=== PATIENT | female | born 1945 | race Caucasian/White ===

== ENCOUNTER 2019-01-22 10:09 | Emergency (ER) | payer OTHER, MEDICAID ==
[~2019-01-22] VITALS: Ht 165.1 cm; Wt 70.0 kg
[2019-01-22 11:30] LABS: BASOPHILS % 1.3 % (0.0-2.0); EOSINOPHILS % 1.4 % (0.0-5.0); HEMATOCRIT. 38.7 % (36.0-48.0); HEMOGLOBIN. 12.7 g/dL (12.0-16.0); LYMPHOCYTES % 31.5 % (20.0-50.0); MEAN CORPUSCULAR HEMOGLOBIN 29.9 pg (28.0-32.0); MEAN CORPUSCULAR VOLUME 90.7 fL (81.0-99.0); MEAN PLATELET VOLUME 7.8 fl (7.4-10.4); NEUTROPHILS % 59.8 % (40.0-76.0); PLATELET 180 x1000/uL (130-400); RED BLOOD CELL COUNT 4.26 mill/uL (4.2-5.4); RED CELL DISTRIBUTION WIDTH 14.2 % (11.6-14.6)
[2019-01-22 11:36] LABS: CHLORIDE 107 mEq/L (98-107)
[2019-01-22 11:38] LABS: INR 1.1; PROTHROMBIN TIME 11.7 sec (9.6-11.0)
[2019-01-22 13:38] VITALS: BP 122/85
== END 2019-01-22 13:39 | disposition home or self-care (01) ==
LOC: ER 11:02
DX: S00.03XA Contusion of scalp, initial encounter (principal); S00.83XA Contusion of other part of head, initial encounter; E11.9 Type 2 diabetes mellitus without complications; I10 Essential (primary) hypertension; G30.9 Alzheimer's disease, unspecified; F02.80 Dementia in other diseases classified elsewhere, unspecified severity, without behavioral disturbance, psychotic disturbance, mood disturbance, and anxiety; W06.XXXA Fall from bed, initial encounter; Y93.89 Activity, other specified; Y92.89 Other specified places as the place of occurrence of the external cause; Y99.8 Other external cause status
CPT/HCPCS: 36415; 84484; 93005; 99284

== ENCOUNTER 2019-09-28 22:06 | Inpatient (IN) | payer OTHER, MEDICAID ==
[~2019-09-28] VITALS: Ht 152.4 cm; Wt 48.5 kg
[2019-09-29] MEDS ORDERED: ONDANSETRON HCL 4MG/2ML INJ IV ONE (01:00)
[2019-09-29] MEDS ORDERED: MORPHINE SULFATE 2 MG/ML CPJ (NOT FOR IM USE) IV ONE (01:00)
[2019-09-29 01:26] LABS: HEMATOCRIT 35.6 % (36.0-48.0); HEMOGLOBIN 12.1 g/dL (12.0-16.0); MEAN CORPUSCULAR HEMOGLOBIN 30.3 pg (28.0-32.0); PLATELET 175 x1000/uL (130-400); RED CELL DISTRIBUTION WIDTH 13.8 % (11.6-14.6)
[2019-09-29 01:29] LABS: CHLORIDE 105 mEq/L (98-107)
[2019-09-29] MEDS ORDERED: DOCUSATE SODIUM 100MG CAPSULE PO PRN (10:15)
[2019-09-29] MEDS ORDERED: IPRATROPIUM/ALBUTEROL 0.5-3(2.5)MG/3ML NEB HHN PRN (10:15)
[2019-09-29] MEDS ORDERED: HYDROCODONE/ACETAMINOPHEN 5/325MG TABLET PO PRN (10:15)
[2019-09-29] MEDS ORDERED: ONDANSETRON HCL 4MG/2ML INJ IV PRN (10:15)
[2019-09-29] MEDS ORDERED: CLONIDINE 0.1MG TABLET PO PRN (10:15)
[2019-09-29] MEDS: LACTATED RINGERS 1,000 ML IV SCH (10:25)
[2019-09-29] MEDS: MORPHINE SULFATE 2 MG/ML CPJ (NOT FOR IM USE) IV PRN (10:25)
[2019-09-29] MEDS: ACETAMINOPHEN 325MG TABLET PO PRN (10:26)
[2019-09-29 12:30] LABS: INR 1.1; PROTHROMBIN TIME 11.9 sec (9.6-11.0)
[2019-09-29 15:51] LABS: CLARITY URINE CLEAR (CLEAR); COLOR URINE YELLOW (YELLOW); KETONES URINE NEGATIVE (NEGATIVE); LEUKOCYTE ESTERASE URINE NEGATIVE (NEGATIVE); NITRITE URINE NEGATIVE (NEGATIVE); OCCULT BLOOD URINE NEGATIVE (NEGATIVE); PROTEIN URINE NEGATIVE (NEGATIVE); SPECIFIC GRAVITY URINE 1.018 (1.005-1.030)
[2019-09-29 17:42] VITALS: BP 120/76
[2019-09-29] MEDS ORDERED: GABA-529 MT (18:07)
[2019-09-29] MEDS ORDERED: CARB-32 MT (18:09)
[2019-09-29] MEDS ORDERED: GLIM2TAB30 MT (18:10)
[2019-09-29 20:00] VITALS: BP 109/63
[2019-09-30] VITALS: BP 115/67
[2019-09-30] MEDS: LACTATED RINGERS 1,000 ML IV SCH ×2 (00:26→16:15)
[2019-09-30 04:00] VITALS: BP 130/72
[2019-09-30 08:00] VITALS: BP 152/90
[2019-09-30] MEDS: ACETAMINOPHEN 325MG TABLET PO PRN (10:54)
[2019-09-30] MEDS: MORPHINE SULFATE 2 MG/ML CPJ (NOT FOR IM USE) IV PRN ×2 (10:55→16:14)
[2019-09-30 15:59] LABS: BASOPHILS % 1.1 % (0.0-2.0); EOSINOPHILS % 1.2 % (0.0-5.0); HEMATOCRIT. 34.8 % (36.0-48.0); LYMPHOCYTES % 15.8 % (20.0-50.0); MEAN CORPUSCULAR HEMOGLOBIN 30.1 pg (28.0-32.0); MEAN CORPUSCULAR VOLUME 87.7 fL (81.0-99.0); MEAN PLATELET VOLUME 7.7 fl (7.4-10.4); MONOCYTES % 8.3 % (2.0-8.0); NEUTROPHILS % 73.6 % (40.0-76.0); PLATELET 202 x1000/uL (130-400); RED BLOOD CELL COUNT 3.97 mill/uL (4.2-5.4); RED CELL DISTRIBUTION WIDTH 13.4 % (11.6-14.6)
[2019-09-30 16:04] LABS: CHLORIDE 104 mEq/L (98-107)
[2019-09-30 20:00] VITALS: BP 144/78
[2019-10-01] VITALS: BP 149/83
[2019-10-01] MEDS: LACTATED RINGERS 1,000 ML IV SCH ×2 (02:51→17:39)
[2019-10-01 04:00] VITALS: BP 146/68
[2019-10-01 07:01] LABS: CHLORIDE 103 mEq/L (98-107)
[2019-10-01 07:05] LABS: EOSINOPHILS % 0.9 % (0.0-5.0); HEMATOCRIT. 34.7 % (36.0-48.0); HEMOGLOBIN. 11.9 g/dL (12.0-16.0); LYMPHOCYTES % 10.8 % (20.0-50.0); MEAN CORPUSCULAR HEMOGLOBIN 30.4 pg (28.0-32.0); MEAN CORPUSCULAR VOLUME 89.2 fL (81.0-99.0); MEAN PLATELET VOLUME 7.5 fl (7.4-10.4); MONOCYTES % 6.8 % (2.0-8.0); NEUTROPHILS % 80.5 % (40.0-76.0); PLATELET 205 x1000/uL (130-400); RED BLOOD CELL COUNT 3.89 mill/uL (4.2-5.4); RED CELL DISTRIBUTION WIDTH 13.3 % (11.6-14.6)
[2019-10-01 08:00] VITALS: BP 152/80
[2019-10-01] MEDS ORDERED: KETOROLAC 30MG/ML VIAL ONE (09:20)
[2019-10-01] MEDS ORDERED: MORPHINE SULFATE 10 MG/ML CPJ ONE (09:20)
[2019-10-01] MEDS ORDERED: ROPIVACAINE HCL 10MG/ML 20 ML VIAL EPI ONE ×2 (09:21→10:26)
[2019-10-01] MEDS ORDERED: EPINEPHRINE 1:1000 1 MG/ML AMP ONE (09:22)
[2019-10-01] MEDS ORDERED: BUPIVACAINE HCL/PF 0.25% (2.5MG/ML) 10ML ONE (09:27)
[2019-10-01] MEDS ORDERED: VANCOMYCIN HCL 1 GM/VIAL ONE (09:28)
[2019-10-01] MEDS ORDERED: BACITRACIN 50,000 UNITS/VIAL ONE (09:28)
[2019-10-01] MEDS ORDERED: TRANEXAMIC ACID 1,000 MG in SODIUM CHLORIDE 0.9% 100 ML IV NR ×2 (09:30→10:00)
[2019-10-01] MEDS ORDERED: PROPOFOL 200MG/20ML VIAL IV ONE (09:31)
[2019-10-01] MEDS ORDERED: FENTANYL CITRATE/PF 50MCG/ML 2ML VIAL ONE (09:31)
[2019-10-01] MEDS ORDERED: MORPHINE SULFATE/PF 1MG/ML 10ML AMP ONE (09:39)
[2019-10-01] MEDS ORDERED: HYDROCODONE/ACETAMINOPHEN 5/325MG TABLET PO PRN (11:30)
[2019-10-01] MEDS ORDERED: ACETAMINOPHEN 325MG TABLET PO PRN (11:30)
[2019-10-01] MEDS ORDERED: KETOROLAC 30MG/ML VIAL IV PRN (11:30)
[2019-10-01] MEDS ORDERED: ONDANSETRON HCL 4MG/2ML INJ IV PRN (11:30)
[2019-10-01] MEDS ORDERED: CEFAZOLIN 1000MG PREMIX 50 ML IV SCH (11:30)
[2019-10-01] MEDS ORDERED: MORPHINE SULFATE 2 MG/ML CPJ (NOT FOR IM USE) IV PRN (11:45)
[2019-10-01] MEDS ORDERED: FENTANYL CITRATE/PF 50MCG/ML 2ML VIAL IV PRN (11:45)
[2019-10-01] MEDS ORDERED: LACTATED RINGERS 1,000 ML IV SCH (12:30)
[2019-10-01 16:00] VITALS: BP 125/71
[2019-10-01] MEDS: CEFAZOLIN 1000MG PREMIX 50 ML IV SCH (17:28)
[2019-10-01] MEDS: SENNOSIDES/DOCUSATE SOD 8.6/50MG TABLET PO SCH (17:29)
[2019-10-01 20:00] VITALS: BP 126/69
[2019-10-02] VITALS: BP 139/76
[2019-10-02] MEDS: CEFAZOLIN 1000MG PREMIX 50 ML IV SCH ×2 (01:45→16:30)
[2019-10-02 04:00] VITALS: BP 128/72
[2019-10-02 06:57] LABS: HEMOGLOBIN. 11.2 g/dL (12.0-16.0); MEAN CORPUSCULAR VOLUME 88.4 fL (81.0-99.0); MEAN PLATELET VOLUME 7.5 fl (7.4-10.4); PLATELET 218 x1000/uL (130-400); RED BLOOD CELL COUNT 3.73 mill/uL (4.2-5.4); RED CELL DISTRIBUTION WIDTH 13.5 % (11.6-14.6)
[2019-10-02 07:14] LABS: CHLORIDE 103 mEq/L (98-107)
[2019-10-02 08:00] VITALS: BP 123/65
[2019-10-02] MEDS: SENNOSIDES/DOCUSATE SOD 8.6/50MG TABLET PO SCH ×2 (09:00→17:00)
[2019-10-02] MEDS: MORPHINE SULFATE 2 MG/ML CPJ (NOT FOR IM USE) IV PRN (09:10)
[2019-10-02] MEDS: LACTATED RINGERS 1,000 ML IV SCH ×2 (09:11→22:14)
[2019-10-02 12:00] VITALS: BP 122/63
[2019-10-02 13:28] LABS: PLATELET ESTIMATE NORMAL
[2019-10-02 16:00] VITALS: BP 106/58
[2019-10-02 20:00] VITALS: BP 93/43
[2019-10-03] VITALS: BP 102/80
[2019-10-03] MEDS ORDERED: POTASSIUM CHLORIDE 20MEQ TABLET SR PO NR
[2019-10-03] MEDS: CEFAZOLIN 1000MG PREMIX 50 ML IV SCH ×3 (01:49→22:10)
[2019-10-03 04:00] VITALS: BP 95/60
[2019-10-03 06:07] LABS: BASOPHILS % 0.6 % (0.0-2.0); EOSINOPHILS % 1.2 % (0.0-5.0); HEMATOCRIT. 28.6 % (36.0-48.0); HEMOGLOBIN. 9.8 g/dL (12.0-16.0); MEAN CORPUSCULAR HEMOGLOBIN 30.4 pg (28.0-32.0); MEAN CORPUSCULAR VOLUME 88.4 fL (81.0-99.0); MEAN PLATELET VOLUME 7.7 fl (7.4-10.4); MONOCYTES % 7.9 % (2.0-8.0); NEUTROPHILS % 82.3 % (40.0-76.0); PLATELET 207 x1000/uL (130-400); RED BLOOD CELL COUNT 3.23 mill/uL (4.2-5.4); RED CELL DISTRIBUTION WIDTH 13.5 % (11.6-14.6)
[2019-10-03 06:11] LABS: CHLORIDE 106 mEq/L (98-107)
[2019-10-03 08:00] VITALS: BP 93/40
[2019-10-03] MEDS: SENNOSIDES/DOCUSATE SOD 8.6/50MG TABLET PO SCH ×2 (09:00→17:00)
[2019-10-03] MEDS: LACTATED RINGERS 1,000 ML IV SCH (11:35)
[2019-10-03 12:00] VITALS: BP 114/47
[2019-10-03 16:00] VITALS: BP 115/50
[2019-10-03 20:00] VITALS: BP 101/60
[2019-10-03] MEDS ORDERED: POTASSIUM CHLORIDE INJ 40 MEQ in DEXT 5% WATER 500 ML IV SCH (21:30)
[2019-10-04] VITALS (10 sets, daily range): BP systolic 79–113; BP diastolic 44–62
[2019-10-04] MEDS: MORPHINE SULFATE 2 MG/ML CPJ (NOT FOR IM USE) IV PRN (04:44)
[2019-10-04 06:30] LABS: BASOPHILS % 0.7 % (0.0-2.0); EOSINOPHILS % 1.9 % (0.0-5.0); HEMATOCRIT. 30.6 % (36.0-48.0); HEMOGLOBIN. 10.4 g/dL (12.0-16.0); LYMPHOCYTES % 15.3 % (20.0-50.0); MEAN CORPUSCULAR HEMOGLOBIN 29.8 pg (28.0-32.0); MEAN CORPUSCULAR VOLUME 87.7 fL (81.0-99.0); MONOCYTES % 6.7 % (2.0-8.0); NEUTROPHILS % 75.4 % (40.0-76.0); PLATELET 274 x1000/uL (130-400); RED BLOOD CELL COUNT 3.49 mill/uL (4.2-5.4); RED CELL DISTRIBUTION WIDTH 13.6 % (11.6-14.6)
[2019-10-04 06:36] LABS: CHLORIDE 107 mEq/L (98-107)
[2019-10-04] MEDS: LACTATED RINGERS 1,000 ML IV SCH ×2 (06:51→23:16)
[2019-10-04] MEDS: CEFAZOLIN 1000MG PREMIX 50 ML IV SCH ×2 (08:44→21:57)
[2019-10-04] MEDS: SENNOSIDES/DOCUSATE SOD 8.6/50MG TABLET PO SCH ×2 (08:44→17:49)
[2019-10-04] MEDS: CARBIDOPA/LEVODOPA 25/100MG TABLET PO SCH ×2 (15:23→21:57)
[2019-10-04] MEDS: GABAPENTIN 100MG CAPSULE PO SCH ×2 (15:24→21:57)
[2019-10-04] MEDS ORDERED: MORPHINE SULFATE 2 MG/ML CPJ (NOT FOR IM USE) IV PRN (15:30)
[2019-10-04] MEDS ORDERED: NALOXONE HCL 0.4 MG/ML 1ML VIAL IV SCH (16:30)
[2019-10-04] MEDS ORDERED: NALOXONE HCL 0.4 MG/ML 1ML VIAL ONE (16:32)
[2019-10-04] MEDS ORDERED: SODIUM CHLORIDE 0.9% 500 ML IV ONE ×2 (16:45→17:00)
[2019-10-04] MEDS ORDERED: SODIUM CHLORIDE 0.9% 1000ML BAG (SEPSIS BOLUS) IV ONE (17:30)
[2019-10-04] MEDS ORDERED: SODIUM CHLORIDE 0.9% 1,000 ML IV SCH ×2 (17:30→18:30)
[2019-10-04] MEDS: MIDODRINE HCL 5MG TABLET PO SCH (17:49)
[2019-10-04] MEDS ORDERED: NALOXONE HCL 0.4 MG/ML 1ML VIAL IV ONE (18:30)
[2019-10-04] MEDS ORDERED: SODIUM CHLORIDE 0.9% 2,000 ML IV ONE (19:00)
[2019-10-05] VITALS (28 sets, daily range): BP systolic 86–156; BP diastolic 49–73
[2019-10-05] MEDS: CARBIDOPA/LEVODOPA 25/100MG TABLET PO SCH ×3 (06:05→21:36)
[2019-10-05] MEDS: GABAPENTIN 100MG CAPSULE PO SCH ×3 (06:05→21:36)
[2019-10-05] MEDS ORDERED: NOREPINEPHRINE 4 MG in DEXT 5% WATER 246 ML IV PRN (08:15)
[2019-10-05] MEDS: MIDODRINE HCL 5MG TABLET PO SCH ×3 (08:20→16:37)
[2019-10-05] MEDS: SENNOSIDES/DOCUSATE SOD 8.6/50MG TABLET PO SCH ×2 (08:20→16:37)
[2019-10-05 09:02] LABS: CHLORIDE 112 mEq/L (98-107)
[2019-10-05] MEDS: CEFAZOLIN 1000MG PREMIX 50 ML IV SCH ×2 (09:13→21:35)
[2019-10-05] MEDS: LACTATED RINGERS 1,000 ML IV SCH ×2 (12:24→23:53)
[2019-10-05] MEDS: ENOXAPARIN 30MG/0.3ML SYR SUBCUT SCH (12:25)
[2019-10-05] MEDS ORDERED: KCL 20MEQ/100ML PREMIX 100 ML IV NR (13:00)
[2019-10-06] VITALS (11 sets, daily range): BP systolic 91–140; BP diastolic 52–93
[2019-10-06] MEDS: GABAPENTIN 100MG CAPSULE PO SCH ×2 (05:48→13:10)
[2019-10-06] MEDS: CARBIDOPA/LEVODOPA 25/100MG TABLET PO SCH ×2 (05:48→13:10)
[2019-10-06 07:13] LABS: BASOPHILS % 1.3 % (0.0-2.0); EOSINOPHILS % 4.9 % (0.0-5.0); HEMATOCRIT. 28.4 % (36.0-48.0); HEMOGLOBIN. 9.6 g/dL (12.0-16.0); LYMPHOCYTES % 20.9 % (20.0-50.0); MEAN CORPUSCULAR HEMOGLOBIN 30.1 pg (28.0-32.0); MEAN CORPUSCULAR VOLUME 88.9 fL (81.0-99.0); MEAN PLATELET VOLUME 7.2 fl (7.4-10.4); MONOCYTES % 6.8 % (2.0-8.0); NEUTROPHILS % 66.1 % (40.0-76.0); PLATELET 309 x1000/uL (130-400); RED BLOOD CELL COUNT 3.19 mill/uL (4.2-5.4); RED CELL DISTRIBUTION WIDTH 13.9 % (11.6-14.6)
[2019-10-06 07:23] LABS: CHLORIDE 110 mEq/L (98-107)
[2019-10-06] MEDS: SENNOSIDES/DOCUSATE SOD 8.6/50MG TABLET PO SCH (08:56)
[2019-10-06] MEDS: MIDODRINE HCL 5MG TABLET PO SCH ×2 (08:56→13:10)
[2019-10-06] MEDS: CEFAZOLIN 1000MG PREMIX 50 ML IV SCH (10:43)
[2019-10-06] MEDS: LACTATED RINGERS 1,000 ML IV SCH (10:49)
[2019-10-06] MEDS ORDERED: ACET650T37 MT (13:00)
[2019-10-06] MEDS ORDERED: LOV40 SQ (13:00)
[2019-10-06] MEDS ORDERED: HYDR-4001 MT ×2 (13:00→15:29)
[2019-10-06] MEDS: ENOXAPARIN 30MG/0.3ML SYR SUBCUT SCH (13:00)
[2019-10-06] MEDS ORDERED: ATOR10TA69 MT (13:00)
[2019-10-06] MEDS ORDERED: HYDROCODONE/ACETAMINOPHEN 5/325MG TABLET PO NR (16:30)
== END 2019-10-06 19:01 | disposition home health service (06) | DRG 470 ==
LOC: ER 22:06 → MICUSO 09-29 01:28 → 6EST 09-29 17:29 → 5EST 10-04 18:34
PROVIDERS: ADMIT Internal Medicine; ATTEND Internal Medicine
PROC: 0SRS01A Replacement of Left Hip Joint, Femoral Surface with Metal Synthetic Substitute, Uncemented, Open Approach (ICD-10-PCS; principal; 2019-10-01)
DX: S72.012A Unspecified intracapsular fracture of left femur, initial encounter for closed fracture (principal); E11.9 Type 2 diabetes mellitus without complications; G20 Parkinson's disease; F02.80 Dementia in other diseases classified elsewhere, unspecified severity, without behavioral disturbance, psychotic disturbance, mood disturbance, and anxiety; Z20.828 Contact with and (suspected) exposure to other viral communicable diseases; I10 Essential (primary) hypertension; W01.0XXA Fall on same level from slipping, tripping and stumbling without subsequent striking against object, initial encounter; I95.9 Hypotension, unspecified; Y93.89 Activity, other specified; Y92.89 Other specified places as the place of occurrence of the external cause; Z90.710 Acquired absence of both cervix and uterus; Z79.84 Long term (current) use of oral hypoglycemic drugs; Y99.8 Other external cause status
CPT/HCPCS: 36415; 71045; 72170; 72192; 73502; 73552; 78582; 80048; 80053; 80061; 80076; 81003; 82550; 83036; 83605; 83880; 84484; 85025; 85027; 85379; 86850; 86900; 88305; 88311; 93005; 93306; 93970; 96374; 97110; 97163; 97166; 97530; 99285; A9558; J0690; J1650; J1885; J2270; J2274; J2310; J2405; J2704; J2795; J3010; J3370; J3480; J3490; J7050; J7060; J7120; U0003-CS

== ENCOUNTER 2019-10-26 16:38 | Inpatient (IN) | payer OTHER, MEDICAID ==
[~2019-10-26] VITALS: Ht 152.4 cm; Wt 44.5 kg
[~2019-10-26 16:38] MED LIST: ACET650T37 MT; ATOR10TA69 MT; CARB-32 MT; GABA-529 MT; GLIM2TAB30 MT; HYDR-4001 MT; LOV40 SQ
[2019-10-26] MEDS ORDERED: SODIUM CHLORIDE 0.9% 1,000 ML IV ONE (17:54)
[2019-10-26] MEDS ORDERED: KETOROLAC 30MG/ML VIAL IV STA (17:54)
[2019-10-26 18:09] LABS: BASOPHILS % 0.8 % (0.0-2.0); EOSINOPHILS % 1.6 % (0.0-5.0); HEMATOCRIT. 33.8 % (36.0-48.0); HEMOGLOBIN. 11.2 g/dL (12.0-16.0); LYMPHOCYTES % 18.5 % (20.0-50.0); MEAN CORPUSCULAR HEMOGLOBIN 29.9 pg (28.0-32.0); MEAN CORPUSCULAR VOLUME 90.5 fL (81.0-99.0); MEAN PLATELET VOLUME 7.9 fl (7.4-10.4); MONOCYTES % 5.9 % (2.0-8.0); NEUTROPHILS % 73.2 % (40.0-76.0); PLATELET 213 x1000/uL (130-400); RED BLOOD CELL COUNT 3.74 mill/uL (4.2-5.4); RED CELL DISTRIBUTION WIDTH 14.8 % (11.6-14.6)
[2019-10-26 18:17] LABS: CHLORIDE 103 mEq/L (98-107)
[2019-10-26 18:20] LABS: INR 1.1
[2019-10-26] MEDS ORDERED: MORPHINE SULFATE 4 MG/ML CPJ (NOT FOR IM USE) IV STA (19:56)
[2019-10-26] MEDS ORDERED: ONDANSETRON HCL 4MG/2ML INJ IV STA (19:56)
[2019-10-26] MEDS ORDERED: KETOROLAC 30MG/ML VIAL IV PRN (22:15)
[2019-10-26] MEDS ORDERED: MAGNESIUM/ALUMINUM HYDROXIDE/SIMETHICONE 30ML UDC PO PRN (22:15)
[2019-10-26] MEDS ORDERED: DIPHENHYDRAMINE 50MG/ML VIAL IV PRN (22:15)
[2019-10-26] MEDS ORDERED: HYDROCODONE/ACETAMINOPHEN 10/325MG TABLET PO PRN (22:15)
[2019-10-26] MEDS ORDERED: DEXTROSE 50% WATER 50ML SYRINGE IV PRN (22:15)
[2019-10-26] MEDS ORDERED: ONDANSETRON HCL 4MG/2ML INJ IV PRN (22:15)
[2019-10-26] MEDS ORDERED: ZOLPIDEM TARTRATE 5MG TABLET PO PRN (22:15)
[2019-10-26] MEDS ORDERED: MAGNESIUM HYDROXIDE 400MG/5ML 30ML UDC PO PRN ×2 (22:15)
[2019-10-26] MEDS ORDERED: ACETAMINOPHEN 325MG TABLET PO PRN ×2 (22:15)
[2019-10-26] MEDS ORDERED: CLONIDINE 0.1MG TABLET PO PRN (22:15)
[2019-10-26 23:20] VITALS: BP 124/65
[2019-10-27] VITALS: BP 124/65
[2019-10-27 04:00] VITALS: BP 101/60
[2019-10-27] MEDS: SODIUM CHLORIDE 0.9% INJ 3ML FLUSH IVF SCH ×3 (06:00→20:30)
[2019-10-27] MEDS: BLOOD SUGAR DIAGNOSTIC STRIP TEST SCH ×4 (06:36→20:30)
[2019-10-27] MEDS: GABAPENTIN 100MG CAPSULE PO SCH ×3 (06:36→20:30)
[2019-10-27] MEDS: CARBIDOPA/LEVODOPA 25/100MG TABLET PO SCH ×3 (06:36→20:30)
[2019-10-27] MEDS: INSULIN LISPRO 100 UNITS/ML SUBCUT SCH ×4 (06:50→21:00)
[2019-10-27 08:00] VITALS: BP 82/51
[2019-10-27] MEDS: DOCUSATE SODIUM SUGAR FREE 100MG/10ML UDC PO SCH ×2 (08:58→17:21)
[2019-10-27] MEDS: ENOXAPARIN 30MG/0.3ML SYR SUBCUT SCH (08:58)
[2019-10-27] MEDS ORDERED: DOCUSATE SODIUM 100MG CAPSULE PO SCH (09:00)
[2019-10-27] MEDS: SODIUM CHLORIDE 0.9% 1,000 ML IV SCH ×2 (10:15→20:30)
[2019-10-27 12:00] VITALS: BP 119/60
[2019-10-27 16:00] VITALS: BP 98/56
[2019-10-27 20:00] VITALS: BP 131/68
[2019-10-28] VITALS (7 sets, daily range): BP systolic 102–138; BP diastolic 54–78
[2019-10-28] MEDS: BLOOD SUGAR DIAGNOSTIC STRIP TEST SCH ×4 (05:44→20:47)
[2019-10-28] MEDS: GABAPENTIN 100MG CAPSULE PO SCH ×3 (05:44→21:08)
[2019-10-28] MEDS: SODIUM CHLORIDE 0.9% INJ 3ML FLUSH IVF SCH ×3 (05:44→20:57)
[2019-10-28] MEDS: CARBIDOPA/LEVODOPA 25/100MG TABLET PO SCH ×3 (05:44→21:08)
[2019-10-28] MEDS: SODIUM CHLORIDE 0.9% 1,000 ML IV SCH ×2 (05:46→16:56)
[2019-10-28] MEDS: INSULIN LISPRO 100 UNITS/ML SUBCUT SCH ×4 (06:37→21:07)
[2019-10-28] MEDS: DOCUSATE SODIUM SUGAR FREE 100MG/10ML UDC PO SCH ×2 (09:24→17:10)
[2019-10-28] MEDS: ENOXAPARIN 30MG/0.3ML SYR SUBCUT SCH (09:24)
[2019-10-28] MEDS: CALCIUM CARBONATE/VITAMIN D3 500MG TABLET PO SCH (17:10)
[2019-10-29] MEDS: SODIUM CHLORIDE 0.9% 1,000 ML IV SCH (02:15)
[2019-10-29 04:00] VITALS: BP 116/62
[2019-10-29] MEDS: CARBIDOPA/LEVODOPA 25/100MG TABLET PO SCH ×3 (05:06→21:47)
[2019-10-29] MEDS: SODIUM CHLORIDE 0.9% INJ 3ML FLUSH IVF SCH ×3 (05:06→22:32)
[2019-10-29] MEDS: GABAPENTIN 100MG CAPSULE PO SCH ×3 (05:06→21:47)
[2019-10-29] MEDS: BLOOD SUGAR DIAGNOSTIC STRIP TEST SCH ×4 (07:18→21:00)
[2019-10-29] MEDS: INSULIN LISPRO 100 UNITS/ML SUBCUT SCH ×4 (07:18→21:00)
[2019-10-29 08:00] VITALS: BP 102/66
[2019-10-29] MEDS: DOCUSATE SODIUM SUGAR FREE 100MG/10ML UDC PO SCH ×3 (09:00→17:00)
[2019-10-29] MEDS: CALCITONIN,SALMON, 3.7 ML NASAL SPRAY ONENSTRL SCH (09:31)
[2019-10-29] MEDS: ENOXAPARIN 30MG/0.3ML SYR SUBCUT SCH (09:31)
[2019-10-29 12:00] VITALS: BP 106/68
[2019-10-29 16:00] VITALS: BP 95/56
[2019-10-29] MEDS: CALCIUM CARBONATE/VITAMIN D3 500MG TABLET PO SCH (18:00)
[2019-10-29 20:00] VITALS: BP 91/53
[2019-10-29] MEDS: QUETIAPINE FUMARATE 25MG TABLET PO SCH (21:47)
[2019-10-30] VITALS: BP 77/46
[2019-10-30] MEDS: MIDODRINE HCL 5MG TABLET PO SCH ×4 (00:06→17:22)
[2019-10-30 04:00] VITALS: BP 111/45
[2019-10-30] MEDS: CARBIDOPA/LEVODOPA 25/100MG TABLET PO SCH ×4 (05:44→21:11)
[2019-10-30] MEDS: GABAPENTIN 100MG CAPSULE PO SCH ×4 (05:45→21:11)
[2019-10-30] MEDS: SODIUM CHLORIDE 0.9% INJ 3ML FLUSH IVF SCH ×2 (06:59→14:05)
[2019-10-30] MEDS: BLOOD SUGAR DIAGNOSTIC STRIP TEST SCH ×4 (07:46→21:35)
[2019-10-30] MEDS: INSULIN LISPRO 100 UNITS/ML SUBCUT SCH ×4 (07:46→21:00)
[2019-10-30 08:00] VITALS: BP_SYST 135; BP_SYST 139; BP_DIAS 67; BP_DIAS 77
[2019-10-30] MEDS: ENOXAPARIN 30MG/0.3ML SYR SUBCUT SCH (09:08)
[2019-10-30] MEDS: QUETIAPINE FUMARATE 25MG TABLET PO SCH ×2 (09:08→21:11)
[2019-10-30] MEDS: DOCUSATE SODIUM SUGAR FREE 100MG/10ML UDC PO SCH ×2 (09:08→17:22)
[2019-10-30] MEDS: CALCITONIN,SALMON, 3.7 ML NASAL SPRAY ONENSTRL SCH (09:09)
[2019-10-30 12:00] VITALS: BP 139/77
[2019-10-30 16:00] VITALS: BP 120/71
[2019-10-30] MEDS: CALCIUM CARBONATE/VITAMIN D3 500MG TABLET PO SCH (17:22)
[2019-10-30 20:00] VITALS: BP 157/87
[2019-10-31] VITALS: BP 137/71
[2019-10-31] MEDS: SODIUM CHLORIDE 0.9% INJ 3ML FLUSH IVF SCH ×3 (01:21→14:16)
[2019-10-31 04:00] VITALS: BP 138/74
[2019-10-31] MEDS: CARBIDOPA/LEVODOPA 25/100MG TABLET PO SCH ×2 (06:00→14:13)
[2019-10-31] MEDS: GABAPENTIN 100MG CAPSULE PO SCH ×2 (06:00→14:13)
[2019-10-31] MEDS: BLOOD SUGAR DIAGNOSTIC STRIP TEST SCH ×2 (07:11→13:11)
[2019-10-31] MEDS: INSULIN LISPRO 100 UNITS/ML SUBCUT SCH ×2 (07:36→12:50)
[2019-10-31 08:00] VITALS: BP 132/79
[2019-10-31] MEDS: MIDODRINE HCL 5MG TABLET PO SCH ×2 (11:08→14:14)
[2019-10-31] MEDS: ENOXAPARIN 30MG/0.3ML SYR SUBCUT SCH (11:09)
[2019-10-31] MEDS: DOCUSATE SODIUM SUGAR FREE 100MG/10ML UDC PO SCH (11:09)
[2019-10-31] MEDS: QUETIAPINE FUMARATE 25MG TABLET PO SCH (11:09)
[2019-10-31] MEDS: CALCITONIN,SALMON, 3.7 ML NASAL SPRAY ONENSTRL SCH (11:10)
[2019-10-31 12:00] VITALS: BP 128/74
[2019-10-31 16:00] VITALS: BP 117/64
[2019-10-31 17:20] VITALS: BP 127/60
== END 2019-10-31 17:38 | disposition home or self-care (01) | DRG 551 ==
LOC: ER 16:38 → 6EST 21:09 → EDBEDREQ 21:18 → ENRESERV 22:23
PROVIDERS: ADMIT Internal Medicine; ATTEND Internal Medicine
DX: S32.028A Other fracture of second lumbar vertebra, initial encounter for closed fracture (principal); G82.50 Quadriplegia, unspecified; R47.01 Aphasia; G20 Parkinson's disease; F02.80 Dementia in other diseases classified elsewhere, unspecified severity, without behavioral disturbance, psychotic disturbance, mood disturbance, and anxiety; E11.9 Type 2 diabetes mellitus without complications; D64.9 Anemia, unspecified; G90.8 Other disorders of autonomic nervous system; Z90.710 Acquired absence of both cervix and uterus; W01.0XXA Fall on same level from slipping, tripping and stumbling without subsequent striking against object, initial encounter; R13.10 Dysphagia, unspecified; Y93.01 Activity, walking, marching and hiking; I95.9 Hypotension, unspecified; R26.81 Unsteadiness on feet; Y92.89 Other specified places as the place of occurrence of the external cause; Y99.8 Other external cause status; Z79.1 Long term (current) use of non-steroidal anti-inflammatories (NSAID); Z79.899 Other long term (current) drug therapy; Z96.642 Presence of left artificial hip joint
CPT/HCPCS: 36415; 72128; 72131; 73700; 80053; 82962; 83036; 85025; 92610; 93005; 93970; 96374; 97116; 97162; 97167; 97530; 97535; 97760; 99285; J1650; J1815; J1885; J2270; J2405; J7030

== ENCOUNTER 2021-05-22 16:41 | Inpatient (IN) | payer OTHER, MEDICAID ==
[~2021-05-22] VITALS: Ht 147.3 cm; Wt 49.4 kg
[2021-05-22] MEDS ORDERED: CEFTRIAXONE 1 G PREMIX 50 ML IV ONE (18:15)
[2021-05-22] MEDS ORDERED: AZITHROMYCIN 500MG/250ML 250 ML IV ONE (18:15)
[2021-05-22 18:28] LABS: BG BASE EXCESS 2.8 mmol/L (-2.0-2.0); BG CARBOXYHEMOGLOBIN 0.3 % (0.5-1.5); BG DEOXYHEMOGLOBIN 1.1 % (0.0-5.0); BG FRACTION INSPIRED OXYGEN 36; BG HCO3 ACT 26.9 mmol/L (22.0-26.0); BG METHEMOGLOBIN 0.4 % (0.0-1.5); BG OXYGEN SATURATION 98.9 % (92.0-98.5); BG OXYHEMOGLOBIN 98.2 % (94.0-97.0); BG PCO2 39.1 mmHg (35.0-45.0); BG PH 7.455 (7.350-7.450); BG PO2 230.4 mmHg (75.0-100.0); BG SAMPLE SITE RIGHT BRACHIAL; BG TOTAL HEMOGLOBIN 11.1 g/dL (12.0-18.0); BG VENT MODE NASAL CANNULA
[2021-05-22 18:46] LABS: BASOPHILS % 0.6 % (0.0-2.0); EOSINOPHILS % 0.5 % (0.0-5.0); HEMATOCRIT. 32.1 % (36.0-48.0); HEMOGLOBIN. 10.5 g/dL (12.0-16.0); LYMPHOCYTES % 14.3 % (20.0-50.0); MEAN CORPUSCULAR HEMOGLOBIN 29.2 pg (28.0-32.0); MEAN CORPUSCULAR VOLUME 89.3 fL (81.0-99.0); MEAN PLATELET VOLUME 7.9 fl (7.4-10.4); MONOCYTES % 5.9 % (2.0-8.0); NEUTROPHILS % 78.7 % (40.0-76.0); PLATELET 122 x1000/uL (130-400); RED CELL DISTRIBUTION WIDTH 13.7 % (11.6-14.6)
[2021-05-22 18:55] LABS: CHLORIDE 120 mEq/L (98-107)
[2021-05-22 20:43] LABS: CLARITY URINE CLEAR (CLEAR); COLOR URINE DARK YELLOW (YELLOW); KETONES URINE TRACE (NEGATIVE); LEUKOCYTE ESTERASE URINE NEGATIVE (NEGATIVE); NITRITE URINE NEGATIVE (NEGATIVE); OCCULT BLOOD URINE NEGATIVE (NEGATIVE); PH URINE 5.5 (4.5-8.0); PROTEIN URINE 2+ (NEGATIVE); SPECIFIC GRAVITY URINE 1.029 (1.005-1.030)
[2021-05-22 20:52] LABS: *AMPHETAMINES SCREEN URINE NEGATIVE (NEGATIVE); *BARBITURATES SCREEN URINE NEGATIVE (NEGATIVE); CANNABINOID URINE SCREEN NEGATIVE (NEGATIVE); METHADONE URINE SCREEN NEGATIVE (NEGATIVE); OPIATES URINE SCREEN NEGATIVE (NEGATIVE); PHENCYCLIDINE URINE SCREEN NEGATIVE (NEGATIVE)
[2021-05-22 20:53] LABS: *BENZODIAZEPINES SCREEN URINE NEGATIVE (NEGATIVE); *COCAINE SCREEN URINE NEGATIVE (NEGATIVE)
[2021-05-22] MEDS ORDERED: DEXAMETHASONE 4MG/ML 1ML VIAL IV ONE (21:00)
[2021-05-22 21:46] LABS: INR 1.3; PROTHROMBIN TIME 13.8 sec (9.6-11.0)
[2021-05-22] MEDS ORDERED: ONDANSETRON HCL 4MG/2ML INJ IV PRN (22:45)
[2021-05-22] MEDS ORDERED: ALBUTEROL 6.7GM HFA INHALER ORI PRN (22:45)
[2021-05-22] MEDS ORDERED: MAGNESIUM/ALUMINUM HYDROXIDE/SIMETHICONE 30ML UDC PO PRN (22:45)
[2021-05-22] MEDS ORDERED: GUAIFENESIN 200MG/10ML SUGAR FREE UDC PO PRN (22:45)
[2021-05-22] MEDS ORDERED: ACETAMINOPHEN 325MG TABLET PO PRN (22:45)
[2021-05-22] MEDS ORDERED: DEXTROSE 50% WATER 50ML SYRINGE IV PRN (23:00)
[2021-05-23] MEDS: CARBIDOPA/LEVODOPA 25/100MG TABLET PO SCH ×3 (06:00→22:00)
[2021-05-23 06:02] LABS: BASOPHILS % 0.6 % (0.0-2.0); HEMATOCRIT. 32.8 % (36.0-48.0); MEAN CORPUSCULAR HEMOGLOBIN 29.6 pg (28.0-32.0); MEAN CORPUSCULAR VOLUME 88.6 fL (81.0-99.0); MEAN PLATELET VOLUME 7.7 fl (7.4-10.4); MONOCYTES % 2.6 % (2.0-8.0); NEUTROPHILS % 83.8 % (40.0-76.0); PLATELET 264 x1000/uL (130-400); RED CELL DISTRIBUTION WIDTH 13.4 % (11.6-14.6)
[2021-05-23 06:19] LABS: CHLORIDE 116 mEq/L (98-107)
[2021-05-23 06:24] LABS: PHOSPHORUS 3.2 mg/dL (2.5-4.9)
[2021-05-23] MEDS: INSULIN LISPRO 100 UNITS/ML SUBCUT SCH ×4 (08:20→21:00)
[2021-05-23] MEDS: GABAPENTIN 100MG CAPSULE PO SCH ×3 (09:00→17:00)
[2021-05-23] MEDS: BLOOD SUGAR DIAGNOSTIC STRIP TEST SCH ×4 (09:34→21:00)
[2021-05-23] MEDS: DEXAMETHASONE 4MG/ML 1ML VIAL IV SCH (09:50)
[2021-05-23] MEDS: ENOXAPARIN 40MG/0.4ML SYR SUBCUT SCH (09:51)
[2021-05-23 09:58] LABS: BG BASE EXCESS 2.1 mmol/L (-2.0-2.0); BG CARBOXYHEMOGLOBIN 0.3 % (0.5-1.5); BG FRACTION INSPIRED OXYGEN 40; BG HCO3 ACT 24.7 mmol/L (22.0-26.0); BG METHEMOGLOBIN 0.3 % (0.0-1.5); BG OXYHEMOGLOBIN 98.4 % (94.0-97.0); BG PCO2 31.7 mmHg (35.0-45.0); BG PH 7.509 (7.350-7.450); BG PO2 191.3 mmHg (75.0-100.0); BG SAMPLE SITE RIGHT RADIAL; BG TOTAL HEMOGLOBIN 11.8 g/dL (12.0-18.0); BG VENT MODE NASAL CANNULA
[2021-05-23] MEDS: DEXTROSE 5% WATER 1,000 ML IV SCH (19:20)
[2021-05-23] MEDS: ATORVASTATIN CALCIUM 10MG TABLET PO SCH (21:00)
[2021-05-24] MEDS: CARBIDOPA/LEVODOPA 25/100MG TABLET PO SCH ×3 (06:00→22:32)
[2021-05-24 08:41] LABS: BASOPHILS % 0.4 % (0.0-2.0); EOSINOPHILS % 0.1 % (0.0-5.0); HEMOGLOBIN. 10.6 g/dL (12.0-16.0); MEAN CORPUSCULAR HEMOGLOBIN 29.8 pg (28.0-32.0); MEAN CORPUSCULAR VOLUME 87.6 fL (81.0-99.0); MEAN PLATELET VOLUME 7.6 fl (7.4-10.4); MONOCYTES % 7.3 % (2.0-8.0); NEUTROPHILS % 79.2 % (40.0-76.0); PLATELET 278 x1000/uL (130-400); RED BLOOD CELL COUNT 3.54 mill/uL (4.2-5.4); RED CELL DISTRIBUTION WIDTH 13.4 % (11.6-14.6)
[2021-05-24 08:44] LABS: CHLORIDE 111 mEq/L (98-107)
[2021-05-24 08:53] LABS: PHOSPHORUS 1.6 mg/dL (2.5-4.9)
[2021-05-24 08:56] LABS: TOTAL IRON BINDING CAPACITY 316 ug/dL (250-450)
[2021-05-24] MEDS: ENOXAPARIN 40MG/0.4ML SYR SUBCUT SCH (08:59)
[2021-05-24] MEDS: DEXAMETHASONE 4MG/ML 1ML VIAL IV SCH (08:59)
[2021-05-24] MEDS: INSULIN LISPRO 100 UNITS/ML SUBCUT SCH ×3 (09:00→22:58)
[2021-05-24] MEDS: DEXTROSE 5% WATER 1,000 ML IV SCH (09:00)
[2021-05-24] MEDS: BLOOD SUGAR DIAGNOSTIC STRIP TEST SCH ×4 (09:00→21:00)
[2021-05-24 10:17] LABS: FOLIC ACID (FOLATE) SERUM 19.4 ng/mL (>5.38)
[2021-05-24 10:50] VITALS: BP 155/62
[2021-05-24 11:00] VITALS: BP 116/62
[2021-05-24] MEDS ORDERED: QUET25TA36 PO (13:07)
[2021-05-24] MEDS: GABAPENTIN 100MG CAPSULE PO SCH ×3 (15:00→18:08)
[2021-05-24 16:00] VITALS: BP 138/72
[2021-05-24 20:00] VITALS: BP 90/52
[2021-05-24] MEDS: ATORVASTATIN CALCIUM 10MG TABLET PO SCH (22:32)
[2021-05-25] VITALS: BP 122/59
[2021-05-25 04:00] VITALS: BP 114/64
[2021-05-25] MEDS: CARBIDOPA/LEVODOPA 25/100MG TABLET PO SCH ×4 (06:00→23:43)
[2021-05-25] MEDS: INSULIN LISPRO 100 UNITS/ML SUBCUT SCH ×4 (07:10→23:44)
[2021-05-25] MEDS: DEXTROSE 5% WATER 1,000 ML IV SCH ×2 (07:15→13:36)
[2021-05-25] MEDS: BLOOD SUGAR DIAGNOSTIC STRIP TEST SCH ×4 (07:15→21:00)
[2021-05-25 08:00] VITALS: BP 114/58
[2021-05-25 08:06] LABS: BASOPHILS % 0.4 % (0.0-2.0); EOSINOPHILS % 0.2 % (0.0-5.0); HEMATOCRIT. 30.2 % (36.0-48.0); HEMOGLOBIN. 10.3 g/dL (12.0-16.0); LYMPHOCYTES % 25.9 % (20.0-50.0); MEAN CORPUSCULAR HEMOGLOBIN 29.3 pg (28.0-32.0); MEAN CORPUSCULAR VOLUME 86.2 fL (81.0-99.0); MEAN PLATELET VOLUME 7.8 fl (7.4-10.4); MONOCYTES % 8.1 % (2.0-8.0); NEUTROPHILS % 65.4 % (40.0-76.0); PLATELET 298 x1000/uL (130-400); RED BLOOD CELL COUNT 3.51 mill/uL (4.2-5.4); RED CELL DISTRIBUTION WIDTH 12.9 % (11.6-14.6)
[2021-05-25 08:42] LABS: CHLORIDE 104 mEq/L (98-107)
[2021-05-25 08:46] LABS: PHOSPHORUS 1.6 mg/dL (2.5-4.9)
[2021-05-25] MEDS: DEXAMETHASONE 4MG/ML 1ML VIAL IV SCH (09:50)
[2021-05-25] MEDS: GABAPENTIN 100MG CAPSULE PO SCH ×4 (09:50→17:48)
[2021-05-25] MEDS: ENOXAPARIN 30MG/0.3ML SYR SUBCUT SCH (09:50)
[2021-05-25 12:00] VITALS: BP 112/60
[2021-05-25 12:54] LABS: HEPATITIS B SURFACE AB < 3.1 mIU/mL
[2021-05-25 13:05] LABS: HEPATITIS B SURFACE ANTIGEN NEGATIVE
[2021-05-25 16:00] VITALS: BP 124/84
[2021-05-25 20:00] VITALS: BP 107/60
[2021-05-25] MEDS: ATORVASTATIN CALCIUM 10MG TABLET PO SCH (23:43)
[2021-05-26 04:00] VITALS: BP 120/68
[2021-05-26] MEDS: BLOOD SUGAR DIAGNOSTIC STRIP TEST SCH ×4 (07:03→22:23)
[2021-05-26] MEDS: INSULIN LISPRO 100 UNITS/ML SUBCUT SCH ×4 (07:03→23:28)
[2021-05-26] MEDS: CARBIDOPA/LEVODOPA 25/100MG TABLET PO SCH ×3 (07:03→22:57)
[2021-05-26 08:00] VITALS: BP 101/58
[2021-05-26] MEDS: ENOXAPARIN 30MG/0.3ML SYR SUBCUT SCH (09:39)
[2021-05-26] MEDS: GABAPENTIN 100MG CAPSULE PO SCH ×3 (09:40→16:57)
[2021-05-26] MEDS: DEXAMETHASONE 4MG/ML 1ML VIAL IV SCH (09:40)
[2021-05-26 12:00] VITALS: BP 113/66
[2021-05-26] MEDS ORDERED: POTASSIUM CHLORIDE INJ 40 MEQ in DEXT 5% WATER 250 ML IV ONE (13:00)
[2021-05-26] MEDS: KCL 20MEQ/100ML X 2 FOR TOTAL KCL 40MEQ/200ML IV SCH ×2 (15:22→16:58)
[2021-05-26 16:00] VITALS: BP 122/69
[2021-05-26] MEDS ORDERED: POTASSIUM PHOS,M-BASIC-D-BASIC 15 MMOL in DEXT 5% WATER 245 ML IV NR (18:00)
[2021-05-26 20:00] VITALS: BP 138/68
[2021-05-26] MEDS: ATORVASTATIN CALCIUM 10MG TABLET PO SCH (22:58)
[2021-05-27] VITALS: BP 111/39
[2021-05-27 04:00] VITALS: BP 126/68
[2021-05-27] MEDS: INSULIN LISPRO 100 UNITS/ML SUBCUT SCH ×4 (06:44→21:00)
[2021-05-27] MEDS: BLOOD SUGAR DIAGNOSTIC STRIP TEST SCH ×4 (06:44→20:45)
[2021-05-27] MEDS: CARBIDOPA/LEVODOPA 25/100MG TABLET PO SCH ×3 (06:44→22:01)
[2021-05-27 08:00] VITALS: BP 137/83
[2021-05-27] MEDS: DEXAMETHASONE 4MG/ML 1ML VIAL IV SCH (08:26)
[2021-05-27] MEDS: GABAPENTIN 100MG CAPSULE PO SCH ×3 (08:26→17:10)
[2021-05-27] MEDS: ENOXAPARIN 30MG/0.3ML SYR SUBCUT SCH (08:26)
[2021-05-27] MEDS: ACETAMINOPHEN 325MG TABLET PO PRN (08:27)
[2021-05-27 12:00] VITALS: BP 140/71
[2021-05-27 16:00] VITALS: BP 112/59
[2021-05-27 20:00] VITALS: BP 115/60
[2021-05-27] MEDS: ATORVASTATIN CALCIUM 10MG TABLET PO SCH (21:33)
[2021-05-28] VITALS: BP 130/64
[2021-05-28 04:00] VITALS: BP 132/66
[2021-05-28] MEDS: CARBIDOPA/LEVODOPA 25/100MG TABLET PO SCH ×3 (06:02→21:33)
[2021-05-28] MEDS: BLOOD SUGAR DIAGNOSTIC STRIP TEST SCH ×4 (06:02→21:00)
[2021-05-28 08:00] VITALS: BP 119/71
[2021-05-28 08:34] LABS: HEMATOCRIT. 36.7 % (36.0-48.0); HEMOGLOBIN. 12.3 g/dL (12.0-16.0); MEAN CORPUSCULAR HEMOGLOBIN 29.4 pg (28.0-32.0); MEAN CORPUSCULAR VOLUME 87.6 fL (81.0-99.0); MEAN PLATELET VOLUME 8.1 fl (7.4-10.4); PLATELET 344 x1000/uL (130-400); RED CELL DISTRIBUTION WIDTH 13.7 % (11.6-14.6)
[2021-05-28] MEDS: GABAPENTIN 100MG CAPSULE PO SCH ×3 (08:39→16:35)
[2021-05-28] MEDS: DEXAMETHASONE 4MG/ML 1ML VIAL IV SCH (08:39)
[2021-05-28] MEDS: ENOXAPARIN 30MG/0.3ML SYR SUBCUT SCH (08:39)
[2021-05-28] MEDS: INSULIN LISPRO 100 UNITS/ML SUBCUT SCH ×4 (08:40→21:41)
[2021-05-28 08:54] LABS: CHLORIDE 99 mEq/L (98-107)
[2021-05-28 08:59] LABS: PHOSPHORUS 3.8 mg/dL (2.5-4.9)
[2021-05-28 12:00] VITALS: BP 134/63
[2021-05-28] MEDS: SODIUM CHLORIDE 0.9% 1,000 ML IV SCH (12:00)
[2021-05-28 16:00] VITALS: BP 106/46
[2021-05-28 20:00] VITALS: BP 131/63
[2021-05-28 21:28] LABS: PLATELET ESTIMATE NORMAL
[2021-05-28] MEDS: ATORVASTATIN CALCIUM 10MG TABLET PO SCH (21:33)
[2021-05-29] VITALS: BP 138/69
[2021-05-29] MEDS: SODIUM CHLORIDE 0.9% 1,000 ML IV SCH ×2 (00:14→13:31)
[2021-05-29 04:00] VITALS: BP 131/63
[2021-05-29] MEDS: CARBIDOPA/LEVODOPA 25/100MG TABLET PO SCH ×3 (05:45→20:12)
[2021-05-29] MEDS: BLOOD SUGAR DIAGNOSTIC STRIP TEST SCH ×4 (05:46→20:12)
[2021-05-29] MEDS: INSULIN LISPRO 100 UNITS/ML SUBCUT SCH ×4 (05:49→20:13)
[2021-05-29 06:57] LABS: HEMATOCRIT. 36.1 % (36.0-48.0); HEMOGLOBIN. 11.8 g/dL (12.0-16.0); MEAN CORPUSCULAR HEMOGLOBIN 28.8 pg (28.0-32.0); MEAN CORPUSCULAR VOLUME 88.1 fL (81.0-99.0); MEAN PLATELET VOLUME 8.4 fl (7.4-10.4); PLATELET 349 x1000/uL (130-400); RED CELL DISTRIBUTION WIDTH 13.8 % (11.6-14.6)
[2021-05-29 07:23] LABS: CHLORIDE 102 mEq/L (98-107)
[2021-05-29 07:35] LABS: PHOSPHORUS 3.2 mg/dL (2.5-4.9)
[2021-05-29 07:54] LABS: PLATELET ESTIMATE NORMAL
[2021-05-29 08:00] VITALS: BP 101/53
[2021-05-29] MEDS: ENOXAPARIN 30MG/0.3ML SYR SUBCUT SCH (08:40)
[2021-05-29] MEDS: GABAPENTIN 100MG CAPSULE PO SCH ×3 (08:40→17:08)
[2021-05-29] MEDS: DEXAMETHASONE 4MG/ML 1ML VIAL IV SCH (08:40)
[2021-05-29 12:00] VITALS: BP 96/50
[2021-05-29 16:00] VITALS: BP 105/64
[2021-05-29] MEDS: ATORVASTATIN CALCIUM 10MG TABLET PO SCH (20:12)
[2021-05-29 20:32] LABS: TOTAL IRON BINDING CAPACITY 308 ug/dL (250-450)
[2021-05-29 20:50] LABS: FOLIC ACID (FOLATE) SERUM 10.6 ng/mL (>5.38)
[2021-05-30] VITALS: BP 119/68
[2021-05-30] MEDS: SODIUM CHLORIDE 0.9% 1,000 ML IV SCH ×2 (02:25→16:40)
[2021-05-30 04:00] VITALS: BP 110/47
[2021-05-30] MEDS: BLOOD SUGAR DIAGNOSTIC STRIP TEST SCH ×4 (06:40→21:00)
[2021-05-30] MEDS: INSULIN LISPRO 100 UNITS/ML SUBCUT SCH ×4 (06:58→22:26)
[2021-05-30] MEDS: CARBIDOPA/LEVODOPA 25/100MG TABLET PO SCH ×3 (06:58→22:25)
[2021-05-30 08:00] VITALS: BP 97/48
[2021-05-30] MEDS: DEXAMETHASONE 4MG/ML 1ML VIAL IV SCH (08:32)
[2021-05-30] MEDS: ENOXAPARIN 30MG/0.3ML SYR SUBCUT SCH (08:33)
[2021-05-30 12:00] VITALS: BP 109/64
[2021-05-30 16:00] VITALS: BP 105/67
[2021-05-30] MEDS: FERROUS SULFATE 300MG/5ML UDC PO SCH (16:40)
[2021-05-30 20:00] VITALS: BP 117/66
[2021-05-30] MEDS: ATORVASTATIN CALCIUM 10MG TABLET PO SCH (22:25)
[2021-05-30] MEDS: ASCORBIC ACID 500 MG TABLET PO SCH (22:25)
[2021-05-31] VITALS: BP 123/66
[2021-05-31 04:00] VITALS: BP 120/80
[2021-05-31] MEDS: CARBIDOPA/LEVODOPA 25/100MG TABLET PO SCH ×3 (05:10→21:20)
[2021-05-31] MEDS: SODIUM CHLORIDE 0.9% 1,000 ML IV SCH ×2 (05:10→19:40)
[2021-05-31] MEDS: BLOOD SUGAR DIAGNOSTIC STRIP TEST SCH ×4 (06:27→21:09)
[2021-05-31] MEDS: INSULIN LISPRO 100 UNITS/ML SUBCUT SCH ×4 (06:27→21:22)
[2021-05-31] MEDS: FERROUS SULFATE 300MG/5ML UDC PO SCH ×3 (06:27→17:25)
[2021-05-31 08:00] VITALS: BP 116/66
[2021-05-31] MEDS: ASCORBIC ACID 500 MG TABLET PO SCH ×2 (08:19→21:20)
[2021-05-31] MEDS: ENOXAPARIN 30MG/0.3ML SYR SUBCUT SCH (08:19)
[2021-05-31] MEDS ORDERED: DEXAMETHASONE 10 MG/ML VIAL IV SCH (09:00)
[2021-05-31 11:13] LABS: HEMATOCRIT. 30.6 % (36.0-48.0); HEMOGLOBIN. 10.2 g/dL (12.0-16.0); MEAN CORPUSCULAR HEMOGLOBIN 29.6 pg (28.0-32.0); MEAN CORPUSCULAR VOLUME 88.9 fL (81.0-99.0); MEAN PLATELET VOLUME 8.8 fl (7.4-10.4); PLATELET 276 x1000/uL (130-400); RED BLOOD CELL COUNT 3.45 mill/uL (4.2-5.4)
[2021-05-31 11:41] LABS: CHLORIDE 103 mEq/L (98-107)
[2021-05-31 11:50] LABS: PHOSPHORUS 3.4 mg/dL (2.5-4.9)
[2021-05-31 12:00] VITALS: BP 96/61
[2021-05-31 12:40] LABS: PLATELET ESTIMATE NORMAL
[2021-05-31 16:00] VITALS: BP 122/73
[2021-05-31 20:00] VITALS: BP 107/64
[2021-05-31] MEDS: ATORVASTATIN CALCIUM 10MG TABLET PO SCH (21:20)
[2021-06-01] VITALS: BP 117/60
[2021-06-01 04:00] VITALS: BP 131/71
[2021-06-01] MEDS: CARBIDOPA/LEVODOPA 25/100MG TABLET PO SCH ×3 (05:18→22:04)
[2021-06-01] MEDS: ACETAMINOPHEN 325MG TABLET PO PRN (05:19)
[2021-06-01] MEDS: INSULIN LISPRO 100 UNITS/ML SUBCUT SCH ×4 (06:24→21:00)
[2021-06-01 06:28] LABS: MEAN CORPUSCULAR VOLUME 87.1 fL (81.0-99.0); MEAN PLATELET VOLUME 8.6 fl (7.4-10.4); PLATELET 287 x1000/uL (130-400); RED BLOOD CELL COUNT 3.67 mill/uL (4.2-5.4)
[2021-06-01] MEDS: BLOOD SUGAR DIAGNOSTIC STRIP TEST SCH ×4 (06:46→21:00)
[2021-06-01 07:33] LABS: CHLORIDE 102 mEq/L (98-107)
[2021-06-01 07:47] LABS: PHOSPHORUS 3.3 mg/dL (2.5-4.9)
[2021-06-01] MEDS: FERROUS SULFATE 300MG/5ML UDC PO SCH ×3 (08:16→17:37)
[2021-06-01] MEDS: ENOXAPARIN 30MG/0.3ML SYR SUBCUT SCH (08:16)
[2021-06-01] MEDS: SODIUM CHLORIDE 0.9% 1,000 ML IV SCH ×2 (08:17→21:25)
[2021-06-01 09:02] VITALS: BP 95/52
[2021-06-01] MEDS: ASCORBIC ACID 500 MG TABLET PO SCH ×2 (09:54→22:04)
[2021-06-01 11:31] VITALS: BP 102/60
[2021-06-01 16:43] VITALS: BP 71/42
[2021-06-01] MEDS ORDERED: SODIUM CHLORIDE 0.9% 250 ML IV ONE (17:30)
[2021-06-01 20:00] VITALS: BP 103/60
[2021-06-01 20:49] LABS: PLATELET ESTIMATE NORMAL
[2021-06-01] MEDS: ATORVASTATIN CALCIUM 10MG TABLET PO SCH (22:04)
[2021-06-02 00:08] VITALS: BP 94/47
[2021-06-02 04:00] VITALS: BP 89/52
[2021-06-02] MEDS: CARBIDOPA/LEVODOPA 25/100MG TABLET PO SCH ×3 (06:00→21:50)
[2021-06-02] MEDS: BLOOD SUGAR DIAGNOSTIC STRIP TEST SCH ×4 (06:26→21:53)
[2021-06-02] MEDS: INSULIN LISPRO 100 UNITS/ML SUBCUT SCH ×4 (07:50→21:52)
[2021-06-02] MEDS: FERROUS SULFATE 300MG/5ML UDC PO SCH ×3 (07:50→18:11)
[2021-06-02 08:00] VITALS: BP 98/55
[2021-06-02 08:00] LABS: INR 1.1; PROTHROMBIN TIME 11.9 sec (9.6-11.0)
[2021-06-02 08:08] LABS: HEMATOCRIT. 32.7 % (36.0-48.0); MEAN CORPUSCULAR HEMOGLOBIN 29.7 pg (28.0-32.0); MEAN CORPUSCULAR VOLUME 88.3 fL (81.0-99.0); MEAN PLATELET VOLUME 9.5 fl (7.4-10.4); PLATELET 278 x1000/uL (130-400); RED BLOOD CELL COUNT 3.71 mill/uL (4.2-5.4); RED CELL DISTRIBUTION WIDTH 13.9 % (11.6-14.6)
[2021-06-02 08:16] LABS: CHLORIDE 104 mEq/L (98-107)
[2021-06-02] MEDS: ASCORBIC ACID 500 MG TABLET PO SCH ×2 (09:00→21:51)
[2021-06-02] MEDS: ENOXAPARIN 30MG/0.3ML SYR SUBCUT SCH (09:00)
[2021-06-02] MEDS: SODIUM CHLORIDE 0.9% 1,000 ML IV SCH ×2 (10:54→21:53)
[2021-06-02] MEDS ORDERED: CEFAZOLIN 1000MG PREMIX 50 ML IV NR (11:15)
[2021-06-02] MEDS ORDERED: MIDAZOLAM HCL 5 MG/5 ML VIAL IV PRN (11:56)
[2021-06-02 12:00] VITALS: BP 95/50
[2021-06-02] MEDS ORDERED: MIDAZOLAM HCL 5 MG/5 ML VIAL ONE (12:07)
[2021-06-02 16:00] VITALS: BP 104/58
[2021-06-02 17:48] LABS: PLATELET ESTIMATE NORMAL
[2021-06-02 20:00] VITALS: BP 116/62
[2021-06-02] MEDS: ATORVASTATIN CALCIUM 10MG TABLET PO SCH (21:50)
[2021-06-02] MEDS ORDERED: METOCLOPRAMIDE HCL 10MG/2ML VIAL IV NR (22:30)
[2021-06-03] VITALS: BP 98/55
[2021-06-03 04:14] VITALS: BP 99/66
[2021-06-03] MEDS: CARBIDOPA/LEVODOPA 25/100MG TABLET PO SCH ×3 (05:20→21:32)
[2021-06-03] MEDS: ACETAMINOPHEN 325MG TABLET PO PRN (05:37)
[2021-06-03] MEDS ORDERED: METOCLOPRAMIDE HCL 10MG/2ML VIAL IV NR (06:00)
[2021-06-03 07:27] LABS: BASOPHILS % 0.2 % (0.0-2.0); EOSINOPHILS % 0.1 % (0.0-5.0); HEMATOCRIT. 27.4 % (36.0-48.0); HEMOGLOBIN. 9.4 g/dL (12.0-16.0); LYMPHOCYTES % 9.2 % (20.0-50.0); MEAN CORPUSCULAR HEMOGLOBIN 30.1 pg (28.0-32.0); MEAN CORPUSCULAR VOLUME 87.2 fL (81.0-99.0); MEAN PLATELET VOLUME 9.2 fl (7.4-10.4); NEUTROPHILS % 84.5 % (40.0-76.0); PLATELET 213 x1000/uL (130-400); RED BLOOD CELL COUNT 3.14 mill/uL (4.2-5.4); RED CELL DISTRIBUTION WIDTH 13.9 % (11.6-14.6)
[2021-06-03 07:32] LABS: CHLORIDE 107 mEq/L (98-107)
[2021-06-03] MEDS: INSULIN LISPRO 100 UNITS/ML SUBCUT SCH ×4 (07:39→21:00)
[2021-06-03] MEDS: BLOOD SUGAR DIAGNOSTIC STRIP TEST SCH ×4 (07:39→21:32)
[2021-06-03 08:00] VITALS: BP 89/50
[2021-06-03] MEDS: FERROUS SULFATE 300MG/5ML UDC PO SCH ×3 (10:31→17:18)
[2021-06-03] MEDS: ENOXAPARIN 30MG/0.3ML SYR SUBCUT SCH (10:32)
[2021-06-03] MEDS: ASCORBIC ACID 500 MG TABLET PO SCH ×2 (10:32→21:31)
[2021-06-03 12:00] VITALS: BP 90/55
[2021-06-03] MEDS: METOCLOPRAMIDE HCL 10MG/2ML VIAL IV SCH ×2 (12:16→17:18)
[2021-06-03] MEDS: SODIUM CHLORIDE 0.9% 1,000 ML IV SCH (13:26)
[2021-06-03 16:00] VITALS: BP 98/56
[2021-06-03] MEDS: CEFEPIME 1,000 MG in DEXTROSE 5% WATER 50 ML IV SCH ×2 (17:18→21:32)
[2021-06-03 20:00] VITALS: BP 97/68
[2021-06-03] MEDS: ATORVASTATIN CALCIUM 10MG TABLET PO SCH (21:32)
[2021-06-04] VITALS: BP 112/63
[2021-06-04] MEDS: METOCLOPRAMIDE HCL 10MG/2ML VIAL IV SCH ×4 (00:38→17:51)
[2021-06-04 04:00] VITALS: BP 114/46
[2021-06-04] MEDS: SODIUM CHLORIDE 0.9% 1,000 ML IV SCH (04:03)
[2021-06-04] MEDS: CARBIDOPA/LEVODOPA 25/100MG TABLET PO SCH ×2 (05:04→14:41)
[2021-06-04] MEDS: CEFEPIME 1,000 MG in DEXTROSE 5% WATER 50 ML IV SCH ×2 (05:04→14:41)
[2021-06-04] MEDS: BLOOD SUGAR DIAGNOSTIC STRIP TEST SCH ×3 (06:39→17:51)
[2021-06-04 08:00] VITALS: BP 115/59
[2021-06-04] MEDS: ASCORBIC ACID 500 MG TABLET PO SCH (09:14)
[2021-06-04] MEDS: FERROUS SULFATE 300MG/5ML UDC PO SCH ×3 (09:14→17:51)
[2021-06-04] MEDS: ENOXAPARIN 30MG/0.3ML SYR SUBCUT SCH (09:15)
[2021-06-04] MEDS: INSULIN LISPRO 100 UNITS/ML SUBCUT SCH ×3 (09:15→17:55)
[2021-06-04 09:37] LABS: BASOPHILS % 0.5 % (0.0-2.0); EOSINOPHILS % 0.8 % (0.0-5.0); HEMATOCRIT. 30.6 % (36.0-48.0); HEMOGLOBIN. 10.3 g/dL (12.0-16.0); LYMPHOCYTES % 12.4 % (20.0-50.0); MEAN CORPUSCULAR HEMOGLOBIN 29.8 pg (28.0-32.0); MEAN CORPUSCULAR VOLUME 88.7 fL (81.0-99.0); MEAN PLATELET VOLUME 9.4 fl (7.4-10.4); MONOCYTES % 6.1 % (2.0-8.0); NEUTROPHILS % 80.2 % (40.0-76.0); PLATELET 210 x1000/uL (130-400); RED BLOOD CELL COUNT 3.45 mill/uL (4.2-5.4); RED CELL DISTRIBUTION WIDTH 14.2 % (11.6-14.6)
[2021-06-04 09:38] LABS: CHLORIDE 106 mEq/L (98-107)
[2021-06-04 09:39] LABS: PHOSPHORUS 2.1 mg/dL (2.5-4.9)
[2021-06-04] MEDS ORDERED: LEVO750T46 MT (15:28)
[2021-06-04] MEDS ORDERED: FE300LUD GT (15:28)
[2021-06-04] MEDS ORDERED: ASCO500T20 GT (15:28)
[2021-06-04] MEDS ORDERED: METO5SOL19 PO (15:28)
[2021-06-04 16:00] VITALS: BP 122/58
[2021-06-04 18:05] VITALS: BP 122/50
== END 2021-06-04 19:20 | disposition hospice, home (50) | DRG 871 ==
LOC: ER 16:41 → SUPCPDRO 22:22 → ENRESERV 05-24 08:41 → 7EST 05-24 12:59 → 6WST 06-01 09:50
PROVIDERS: ADMIT Internal Medicine; ATTEND Internal Medicine
PROC: 0DH64UZ Insertion of Feeding Device into Stomach, Percutaneous Endoscopic Approach (ICD-10-PCS; principal; 2021-06-02)
DX: A41.89 Other specified sepsis (principal); J12.82 Pneumonia due to coronavirus disease 2019; J96.01 Acute respiratory failure with hypoxia; U07.1 COVID-19; E43 Unspecified severe protein-calorie malnutrition; G93.41 Metabolic encephalopathy; E87.0 Hyperosmolality and hypernatremia; E11.9 Type 2 diabetes mellitus without complications; Z96.649 Presence of unspecified artificial hip joint; F02.80 Dementia in other diseases classified elsewhere, unspecified severity, without behavioral disturbance, psychotic disturbance, mood disturbance, and anxiety; G20 Parkinson's disease; K76.0 Fatty (change of) liver, not elsewhere classified; K80.20 Calculus of gallbladder without cholecystitis without obstruction; R13.12 Dysphagia, oropharyngeal phase; E88.09 Other disorders of plasma-protein metabolism, not elsewhere classified; D63.8 Anemia in other chronic diseases classified elsewhere; E61.1 Iron deficiency; Z74.01 Bed confinement status; Z79.84 Long term (current) use of oral hypoglycemic drugs; Z79.899 Other long term (current) drug therapy; Z87.81 Personal history of (healed) traumatic fracture; Z90.710 Acquired absence of both cervix and uterus; Z28.3 Underimmunization status; Z79.891 Long term (current) use of opiate analgesic; Z68.22 Body mass index [BMI] 22.0-22.9, adult; R62.7 Adult failure to thrive
CPT/HCPCS: 36415; 36600; 71045; 73120; 76700; 80048; 80053; 80076; 80305; 81003; 82375; 82607; 82728; 82746; 82805; 82962; 83540; 83550; 83605; 83735; 83880; 84100; 84145; 84443; 84484; 85025; 86140; 86705; 86706; 86709; 86803; 87340; 87426; 93005; 96365; 96368; 97166; 99291; J0456; J0690; J0692; J0696; J1100; J1650; J1815; J2250; J2765; J3480; J3490; J7030; J7040; J7060; J7070; A4315

== ENCOUNTER 2021-08-20 02:21 | Emergency (ER) | payer OTHER, MEDICAID ==
[~2021-08-20] VITALS: Ht 152.4 cm; Wt 39.0 kg
[~2021-08-20 02:21] MED LIST changes: +ASCO500T20 GT; +FE300LUD GT; -HYDR-4001 MT; +LEVO750T46 MT; +METO5SOL19 PO; +QUET25TA36 PO
[2021-08-20] MEDS ORDERED: SODIUM CHLORIDE 0.9% 1000ML BAG (SEPSIS BOLUS) IV ONE (02:45)
[2021-08-20 03:08] LABS: HEMATOCRIT. 38.5 % (36.0-48.0); HEMOGLOBIN. 12.3 g/dL (12.0-16.0); MEAN CORPUSCULAR HEMOGLOBIN 26.7 pg (28.0-32.0); MEAN CORPUSCULAR VOLUME 83.7 fL (81.0-99.0); MEAN PLATELET VOLUME 8.6 fl (7.4-10.4); PLATELET 202 x1000/uL (130-400); RED BLOOD CELL COUNT 4.61 mill/uL (4.2-5.4); RED CELL DISTRIBUTION WIDTH 16.1 % (11.6-14.6)
[2021-08-20 03:28] LABS: CHLORIDE 107 mEq/L (98-107)
[2021-08-20 03:38] LABS: PLATELET ESTIMATE NORMAL
[2021-08-20] MEDS ORDERED: VANCOMYCIN 1G PREMIX 200 ML IV NR (03:45)
[2021-08-20] MEDS ORDERED: PIPERACILLIN/TAZOBACTAM 3.375GM/50ML PREMIX IV ONE (03:45)
[2021-08-20] MEDS ORDERED: PIPERACILLIN/TAZ 3.375G PREMIX 50 ML IV NR (04:15)
[2021-08-20] MEDS ORDERED: SODIUM CHLORIDE 0.9% 1,000 ML IV ONE (04:15)
[2021-08-20 04:36] LABS: CLARITY URINE CLOUDY (CLEAR); COLOR URINE DARK YELLOW (YELLOW); KETONES URINE NEGATIVE (NEGATIVE); LEUKOCYTE ESTERASE URINE 3+ (NEGATIVE); NITRITE URINE POSITIVE (NEGATIVE); OCCULT BLOOD URINE NEGATIVE (NEGATIVE); PH URINE 6.5 (4.5-8.0); PROTEIN URINE NEGATIVE (NEGATIVE); SPECIFIC GRAVITY URINE 1.012 (1.005-1.030)
[2021-08-20 19:32] VITALS: BP 126/60
== END 2021-08-20 19:46 | disposition home or self-care (01) ==
LOC: ER 02:21
DX: A41.9 Sepsis, unspecified organism (principal); R65.20 Severe sepsis without septic shock; N30.90 Cystitis, unspecified without hematuria; Z79.899 Other long term (current) drug therapy; E11.9 Type 2 diabetes mellitus without complications; Z98.890 Other specified postprocedural states
CPT/HCPCS: 36415; 70450; 71045; 80053; 81003; 82962; 83605; 84145; 84484; 85025; 87040; 87077; 87086; 87186; 93005; 96361; 96365; 96366; 96367; 99291; J2543; J3370; J7030